=== PATIENT | female | born 1945 | race Asian ===

== ENCOUNTER 2016-08-28 20:52 | Emergency (ER) | payer BC, MEDICARE ==
--- NOTE | 2016-08-28 21:32 | ER Document Report ---
ED Medical Screen (RME) - General Stated Complaint: LEFT HIP PAIN Notes: 71 yo female c/o left hip pain x 2 days. no trauma. no fever. no redness or warmth. + aggrevated with prolonged standing. works in cafeteria. some relief with naprosyn TRAVEL OUTSIDE OF THE [place] IN LAST 30 DAYS: No - Related Data Allergies/Adverse Reactions: No Known Allergies Allergy (Verified 09/11/13 11:15) Past Medical History - Past Medical History Cardiac Medical History: Denies: Hx Coronary Artery Disease, Hx Heart Attack, Hx Hypertension Pulmonary Medical History: Denies: Hx Asthma, Hx Bronchitis, Hx COPD, Hx Pneumonia Neurological Medical History: Denies: Hx Cerebrovascular Accident, Hx Seizures GI Medical History: Musculoskeltal Medical History: Denies Hx Arthritis Infectious Medical History: Past Surgical History: Denies: Hx Pacemaker - Immunizations Hx Diphtheria, Pertussis, Tetanus Vaccination: Yes
[2016-08-28] MEDS ORDERED: VALACYCLOVIR HCL 500 MG TABLET PO ONE (22:57)
--- NOTE | 2016-08-28 23:00 | ER Document Report ---
HPI - HPI Patient complains to provider of: left hip pain Onset: Other - 2 days Onset/Duration: Better Quality of pain: Achy Pain Level: 2 Context: Patient complains of left lateral hip pain that started yesterday. Patient states that she took her naproxen and that her hip pain is now resolved. Patient complains of a numb tingling sensation to the lateral aspect of her left hip area. Patient denies any trauma. Patient denies any previous history of hip pain or low back pain. Patient denies any low back pain. Patient denies any urinary retention or incontinence. Patient denies any fever. Associated Symptoms: Other - Left lateral hip discomfort. denies: Fever Exacerbated by: Denies Relieved by: Denies Similar symptoms previously: No Recently seen / treated by doctor: No - ROS ROS below otherwise negative: Yes Systems Reviewed and Negative: Yes All other systems reviewed and negative - CONSTITUTIONAL Constitutional: DENIES: Fever, Chills - NEURO Neurology: DENIES: Headache, Weakness - CARDIOVASCULAR Cardiovascular: DENIES: Chest pain - RESPIRATORY Respiratory: DENIES: Trouble Breathing, Coughing - GASTROINTESTINAL Gastrointestinal: DENIES: Abdominal Pain, Nausea, Patient vomiting - URINARY Notes: No retention or incontinence - REPRODUCTIVE Reproductive: DENIES: : - MUSCULOSKELETAL Musculoskeletal: REPORTS: Extremity pain - Left lateral hip discomfort, Swelling - Left lateral hip. 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 Lives with: Alone Family History: None Patient has suicidal ideation: No Patient has homicidal ideation: No - Medical History Medical History: Negative - Past Medical History Cardiac Medical History: Denies: Hx Hypertension Pulmonary Medical History: Denies: Hx Asthma, Hx Bronchitis Endocrine Medical History: Denies: Hx Diabetes Mellitus Type 1, Hx Diabetes Mellitus Type 2 Renal/ Medical History: Denies: Hx End Stage Renal Disease, Hx Renal Insufficiency GI Medical History: Musculoskeltal Medical History: Denies Hx Arthritis Infectious Medical History: Past Surgical History: Reports: Hx Orthopedic Surgery - Immunizations Hx Diphtheria, Pertussis, Tetanus Vaccination: Yes Vertical Provider Document - CONSTITUTIONAL Agree With Documented VS: Yes - vital signs reviewed from triage sheet Exam Limitations: No Limitations General Appearance: WD/WN, No Apparent Distress - INFECTION CONTROL TRAVEL OUTSIDE OF THE [place] IN LAST 30 DAYS: No - HEENT HEENT: Atraumatic, Normocephalic - NECK Neck: Normal Inspection - RESPIRATORY Respiratory: Breath Sounds Normal, No Respiratory Distress, Chest Non-Tender - CARDIOVASCULAR Cardiovascular: Regular Rate, Regular Rhythm, No Murmur - GI/ABDOMEN Gastrointestinal: Abdomen Soft, Abdomen Non-Tender - BACK Back: Normal Inspection. negative: CVA Tenderness-Right, CVA Tenderness-Left Notes: No midline tenderness, step-off, or deformity, no SI joint tenderness. - MUSCULOSKELETAL/EXTREMETIES Musculoskeletal/Extremeties: MAEW, FROM, Non-Tender Notes: Left hip nontender on examination. Patient with full range of motion, moves without guarding. No objective swelling appreciated to left lateral hip area. Patient with few scattered discrete erythematous maculopapular lesions over area of the patient describes as feeling numb over left iliac crest - NEURO Level of Consciousness: Awake, Alert, Appropriate Motor/Sensory: No Motor Deficit Notes: No saddle anesthesia - DERM Integumentary: Warm, Dry, Rash - Few scattered discrete erythematous lesions to left lateral hip area Course - Re-evaluation Re-evalutation: 08/28/16 23:05 Discussed with patient concerned about possible early presentation of shingles given her pain symptoms, reported altered sensation and few scattered discrete red lesions. Patient states she was concerned about her symptoms as she lives by herself. Patient does state that she has a follow-up appointment tomorrow with her primary care provider. Patient encouraged to keep this appointment tomorrow with her doctor and encouraged to have her blood pressure rechecked as it was elevated tonight. Patient denies any previous history of hypertension or any renal problems. 08/28/16 23:12 Patient states that she does not have a personal history of hypertension. Patient states that because she is living alone right now because her is working out of town she is very anxious about having any thing go wrong with her body. Patient states that she does have a blood pressure cuff at home. Patient encouraged to measure her blood pressure at home and record the readings so that when she sees her doctor she can show him where her blood pressure has been running. Discharge - Discharge Clinical Impression: Left hip pain, Skin rash, Elevated blood pressure reading Condition: Stable Disposition: HOME, SELF-CARE Instructions: Shingles ([facility]), High Blood Pressure ([facility]) Additional Instructions: Return immediately for any new or worsening symptoms Followup with your primary care provider tomorrow for a recheck as planned Prescriptions: Valacyclovir HCl [Valacyclovir] 1,000 mg PO TID #21 tablet Forms: Return to Work, Elevated Blood Pressure Referrals: GERI RAMIREZ MD [EMERITUS] - Follow up tomorrow
[2016-08-29 01:00] VITALS: BP 130/74
== END 2016-08-29 01:00 | disposition home or self-care (01) ==
LOC: ER 20:52
DX: M25.552 Pain in left hip (principal); R21 Rash and other nonspecific skin eruption; R03.0 Elevated blood-pressure reading, without diagnosis of hypertension; R20.0 Anesthesia of skin; F41.9 Anxiety disorder, unspecified; Z60.2 Problems related to living alone; Z87.891 Personal history of nicotine dependence
CPT/HCPCS: 99283

== ENCOUNTER → 2016-09-17 | Outpatient (CLI) | payer BC ==
[2016-09-17 11:31] LABS: ABSOLUTE BASOPHILS # (AUTO) 0.1 10^3/uL (0.0-0.2); ABSOLUTE EOSINOPHILS # (AUTO) 0.4 10^3/uL (0.0-0.6); ABSOLUTE LYMPHOCYTES (AUTO) 1.8 10^3/uL (0.5-4.7); ABSOLUTE MONOCYTES (AUTO) 0.7 10^3/uL (0.1-1.4); ABSOLUTE NEUT (AUTO) 4.1 10^3/uL (1.7-8.2); BASOPHILS % (AUTO) 1.2 % (0-2); EOSINOPHILS % (AUTO) 5.5 % (0-6); HEMATOCRIT 40.4 % (36.0-47.0); HEMOGLOBIN 13.7 g/dL (12.0-15.5); HGB HCT DIFFERENCE 0.7; LYMPHOCYTES % (AUTO) 25.8 % (13-45); MEAN CORPUSCULAR HEMOGLOBIN 30.6 pg (27.0-33.4); MEAN CORPUSCULAR HGB CONC 33.8 g/dL (32.0-36.0); MEAN CORPUSCULAR VOLUME 91 fl (80-97); MONOCYTES % (AUTO) 9.4 % (3-13); RED BLOOD COUNT 4.46 10^6/uL (3.72-5.28); RED CELL DISTRIBUTION WIDTH 13.4 % (11.5-14.0); SEGMENTED NEUTROPHILS % (AUTO) 58.1 % (42-78)
[2016-09-17 11:57] LABS: ALANINE AMINOTRANSFERASE 22 U/L (9-52); ALKALINE PHOSPHATASE 72 U/L (38-126); ANION GAP 12 (5-19); ASPARTATE AMINO TRANSFERASE 21 U/L (14-36); BILIRUBIN,TOTAL 0.8 mg/dL (0.2-1.3); BLOOD UREA NITROGEN 21 mg/dL (7-20); CALCIUM 10.1 mg/dL (8.4-10.2); CARBON DIOXIDE 24 mmol/L (22-30); CHLORIDE 107 mmol/L (98-107); CREATININE RESULT 0.53 mg/dL (0.52-1.25); GLUCOSE 91 mg/dL (75-110); POTASSIUM 4.4 mmol/L (3.6-5.0); SODIUM 143.4 mmol/L (137-145)
[2016-09-18 08:47] LABS: CHOLESTEROL 198.53 mg/dL (0-200); Direct HDL 51 mg/dL (>40); TRIGLYCERIDES 138 mg/dL (<150)
[2016-09-18 08:57] LABS: DIRECT LDL 115 mg/dL (<100)
== END ==
LOC: OD 10:47
PROVIDERS: ATTEND Internal Medicine
DX: J44.9 Chronic obstructive pulmonary disease, unspecified (principal); R06.09 Other forms of dyspnea; E78.00 Pure hypercholesterolemia, unspecified; I10 Essential (primary) hypertension; Z79.899 Other long term (current) drug therapy
CPT/HCPCS: 36415; 71020; 80053; 80061; 85025

== ENCOUNTER 2017-07-03 07:53 | Day surgery (SDC) | payer BC ==
--- NOTE | 2017-06-26 18:05 | HISTORY AND PHYSICAL E ---
History and Physical NAME: NOE RAMIREZ : 1945 AGE: 72Y ADMITTED: 07/03/2017 ROOM: CHIEF COMPLAINT: Referred [facility]. The patient for colon screening. HISTORY: This 72-year-old female presented for colon screening. The patient did have a previous colonoscopy showing a benign polyp. She does have a history of diverticulosis. Biopsy of polyp negative. The patient is referred to us by Dr. Worthington for a colon screening. I did colonoscopy in 2009 that showed a rectal polyp. No adenoma. She did have sigmoid colon diverticulosis, occasional diverticulosis in the ascending colon. PAST SURGICAL HISTORY: Knee surgery. SOCIAL HISTORY: Does not smoke. Does not drink. . Four children. ALLERGIES: The patient has no known allergies. REVIEW OF SYSTEMS: CARDIAC: Negative. ENDOCRINE: Negative. GASTROINTESTINAL: Colon screening. NEUROPSYCH: Mild anxiety. CONCLUSION: 1. Diverticulosis. 2. Colon screening. Her last colonoscopy was done in 06/2010. 3. History of benign polyp. PLAN: Colonoscopy. DICTATING PHYSICIAN: MARIELA SHEPHERD M.D. [id number] PHY#: [id number] ID: [id number] JOB#: [id number] ACCT: [id number] cc:GERI RAMIREZ M.D., MAHMOUD M.D. >
[~2017-07-03 07:53] MED LIST: EPINEPHRINE INJ 1 MG/10 ML DISP.SYRIN ONE; FLUMAZENIL INJ 0.5 MG/5 ML VIAL ONE; GLUCAGON,HUMAN RECOMB 1 MG INJ ONE; GLYCOPYRROLATE INJ 0.4 MG/2 ML VIAL ONE; NALOXONE HCL INJ/PF 0.4 MG/1 ML SDV ONE; ONDANSETRON HCL INJ/PF 4 MG/2 ML SDV ONE
[2017-07-03] MEDS: MIDAZOLAM 2 MG/2 ML INJ ONE ×3 (08:09→08:19)
[2017-07-03] MEDS: FENTANYL CITRATE INJ/PF 100 MCG/2 ML AMPUL ONE ×2 (08:11→08:13)
[2017-07-03 09:29] VITALS: BP 121/68
[2017-07-03 09:50] LABS: ABSOLUTE LYMPHOCYTES (AUTO) 0.9 10^3/uL (0.5-4.7); ABSOLUTE MONOCYTES (AUTO) 0.5 10^3/uL (0.1-1.4); HEMOGLOBIN 12.9 g/dL (12.0-15.5); MEAN CORPUSCULAR HGB CONC 33.6 g/dL (32.0-36.0); MEAN CORPUSCULAR VOLUME 91 fl (80-97); RED BLOOD COUNT 4.23 10^6/uL (3.72-5.28)
[2017-07-03 09:55] LABS: ABSOLUTE BASOPHILS # (AUTO) 0.1 10^3/uL (0.0-0.2); ABSOLUTE EOSINOPHILS # (AUTO) 0.2 10^3/uL (0.0-0.6); ABSOLUTE NEUT (AUTO) 5.5 10^3/uL (1.7-8.2); BASOPHILS % (AUTO) 0.8 % (0-2); EOSINOPHILS % (AUTO) 2.2 % (0-6); HEMATOCRIT 38.4 % (36.0-47.0); HGB HCT DIFFERENCE 0.3; LYMPHOCYTES % (AUTO) 12.2 % (13-45); MEAN CORPUSCULAR HEMOGLOBIN 30.5 pg (27.0-33.4); MONOCYTES % (AUTO) 6.9 % (3-13); RED CELL DISTRIBUTION WIDTH 12.9 % (11.5-14.0); SEGMENTED NEUTROPHILS % (AUTO) 77.9 % (42-78); WHITE BLOOD COUNT 7.1 10^3/uL (4.0-10.5)
--- NOTE | 2017-07-03 10:22 | DISCHARGE SUMMARY E ---
Discharge Summary NAME: NOE RAMIREZ : 1945 AGE: 72Y ADMITTED: 07/03/2017 DISCHARGED: 07/03/2017 PROCEDURE: Colonoscopy. HISTORY AND PHYSICAL: The patient is 72, underwent colon exam showing no polyps, diffuse diverticulosis, mild external hemorrhoids. DISCHARGE PLAN: 1. Soft, low-residue diet for 3 days. 2. Baseline CBC. 3. Follow-up office visit in the next few days. DICTATING PHYSICIAN: MARIELA SHEPHERD M.D. [id number] PHY#: [id number] ID: [id number] JOB#: [id number] ACCT: [id number] cc:MARIELA SHEPHERD M.D. >
--- NOTE | 2017-07-03 10:24 | OPERATIVE REPORT E ---
Operative Report NAME: NOE RAMIREZ : 1945 AGE: 72Y DATE OF SURGERY: 07/03/2017 ROOM: PREOPERATIVE DIAGNOSIS: Colon screening. POSTOPERATIVE DIAGNOSIS: Diverticulosis, diffuse, left colon and right colon, more severe in sigmoid and descending colon. PROCEDURE: Colonoscopy. SURGEON: MARIELA SHEPHERD M.D. ANESTHESIA: Versed 3 mg and Fentanyl 100 mcg. TISSUE REMOVED OR ALTERED: None. FINDINGS: Mild external hemorrhoids. Sigmoid and descending colon diverticulosis. Ascending colon diverticulosis. No polyps. No malignancy. PROCEDURE: Rectal exam: External hemorrhoids. Sigmoid diverticulosis. Descending colon diverticulosis. Transverse colon normal. Ascending colon diverticulosis. Cecum normal. Scope withdrawn cecum, ascending, transverse, descending, sigmoid all the way to the rectum. CONCLUSIONS: No polyps. Diffuse diverticulosis. PLAN: Consider follow-up colonoscopy in 10 years. DICTATING PHYSICIAN: MARIELA SHEPHERD M.D. [id number] PHY#: [id number] ID: [id number] JOB#: [id number] ACCT: [id number] cc:GERI RAMIREZ M.D., MAHMOUD M.D. >
== END 2017-07-03 09:35 | disposition home or self-care (01) ==
LOC: END 07:53
PROVIDERS: ATTEND Specialist
PROC: 0DJD8ZZ Inspection of Lower Intestinal Tract, Via Natural or Artificial Opening Endoscopic (ICD-10-PCS; principal; 2017-07-03 08:00)
DX: Z12.11 Encounter for screening for malignant neoplasm of colon (principal); K64.4 Residual hemorrhoidal skin tags; K57.30 Diverticulosis of large intestine without perforation or abscess without bleeding
CPT/HCPCS: 45378; 36415; 85025; J2250; J3010; J1610; J2405; J0171; J2310; J3490

== ENCOUNTER → 2017-08-14 | Outpatient (CLI) | payer BC, MEDICARE ==
--- NOTE | 2017-08-14 11:48 | WOMENS IMAGING REPORT ---
EXAM DESCRIPTION: RIGHT DIAGNOSTIC MAMMO W/CAD; U/S BREAST UNILAT LIMITED; EMPLOYEE COMPLETED DATE/TIME: 08/14/2017 10:58 am; 08/14/2017 11:37 am REASON FOR STUDY: N63.12; RT BREAST [id number] N63.12 UNSPECIFIED LUMP IN THE RIGHT BREAST, UPPE R INNER SHANTI COMPARISON: 07/22/2017 and 07/24/2016. TECHNIQUE: Additional true lateral and spot compression MLO and CC images acquired. LIMITATIONS: None. FINDINGS: BREAST: right MASSES: The mass in question in the superior breast is rounded well-circumscribed with smooth margins . CALCIFICATIONS: No new or suspicious calcifications. ARCHITECTURAL DISTORTION: None. DEVELOPING DENSITY: None. ASYMMETRY: None noted. OTHER: No other significant findings. BREAST ULTRASOUND: TECHNIQUE: Static and dynamic grayscale images acquired of the right breast in the specific areas of clinical/mammographic concern. Selected color Doppler images recorded. ELASTOGRAPHY PERFORMED: No. LIMITATIONS: None. FINDINGS: MASS: There are multiple anechoic cysts in the superior breast. The largest cyst in the upper inner breast, corresponding to the mammographic finding, measures 6 mm. There is also a cyst in the upper- outer breast measuring 7 x 17 mm. All cysts are well-circumscribed with no internal echoes. No kendall d mass identified. Normal glandular tissue. ELASTOGRAPHY CHARACTERISTICS: Not applicable. OTHER: No other significant finding. IMPRESSION: Circumscribed masses which have sonographic appearance of breast cysts. No worrisome ma mmographic or sonographic findings. BREAST DENSITY: b. There are scattered areas of fibroglandular density. BIRAD: 2 Benign findings. RECOMMENDATION: RECOMMENDED FOLLOW UP: Birads 1 or 2: The patient should resume routine screening . SPECIFIC INTERVENTION/IMAGING/CONSULTATION RECOMMENDED:No additional intervention/ imaging/consultati on needed at this time. COMMUNICATION:The imaging findings were not discussed with the patient. Her referring provider has be en notified of the findings. COMMENT: The patient has been notified of the results by letter per MQSA requirements. Additional no tification policies are in place for contacting patient with suspicious or incomplete findings. Quality ID #225: The [employer] recommends an annual screening mammogram for women aged 40 years or over. This facility utilizes a reminder system to ensure that all patients receive reminder letters, and/or direct phone calls for appointments. This includes reminders for routine scr eening mammograms, diagnostic mammograms, or other Breast Imaging Interventions when appropriate. Th is patient will be placed in the appropriate reminder system. The [employer] (ACR) has developed recommendations for screening MRI of the breast s in certain patient populations, to be used in conjunction with mammography. Breast MRI surveillanc e may be appropriate for women with more than 20% lifetime risk of developing breast cancer as deter mined by genetic testing, significant family history of the disease, or history of mantle radiation f or Hodgkins Disease. ACR Practice Guidelines 2008. TECHNICAL DOCUMENTATION: FINDING NUMBER: (1) ASSESSMENT: (1) JOB ID: [id number] [employer]- All Rights Reserved
== END ==
LOC: WI 10:41
PROVIDERS: ATTEND Internal Medicine
DX: N63.12 Unspecified lump in the right breast, upper inner quadrant (principal)
CPT/HCPCS: 76642; G0206

== ENCOUNTER → 2017-09-24 | Outpatient (CLI) | payer BC, MEDICARE ==
[2017-09-24 07:52] LABS: ABSOLUTE BASOPHILS # (AUTO) 0.1 10^3/uL (0.0-0.2); ABSOLUTE EOSINOPHILS # (AUTO) 0.4 10^3/uL (0.0-0.6); ABSOLUTE MONOCYTES (AUTO) 0.5 10^3/uL (0.1-1.4); ABSOLUTE NEUT (AUTO) 2.9 10^3/uL (1.7-8.2); BASOPHILS % (AUTO) 1.5 % (0-2); EOSINOPHILS % (AUTO) 6.1 % (0-6); HEMATOCRIT 40.6 % (36.0-47.0); HEMOGLOBIN 13.8 g/dL (12.0-15.5); LYMPHOCYTES % (AUTO) 33.8 % (13-45); MEAN CORPUSCULAR HEMOGLOBIN 30.3 pg (27.0-33.4); MEAN CORPUSCULAR HGB CONC 33.9 g/dL (32.0-36.0); MEAN CORPUSCULAR VOLUME 89 fl (80-97); MONOCYTES % (AUTO) 8.6 % (3-13); PLATELET COUNT 282 10^3/uL (150-450); RED BLOOD COUNT 4.55 10^6/uL (3.72-5.28); RED CELL DISTRIBUTION WIDTH 12.8 % (11.5-14.0); TOTAL CELLS COUNTED % (AUTO) 100 %; WHITE BLOOD COUNT 5.8 10^3/uL (4.0-10.5)
[2017-09-24 08:17] LABS: ALANINE AMINOTRANSFERASE 20 U/L (9-52); ALBUMIN 4.3 g/dL (3.5-5.0); ALKALINE PHOSPHATASE 72 U/L (38-126); ANION GAP 10 (5-19); ASPARTATE AMINO TRANSFERASE 23 U/L (14-36); BILIRUBIN,DIRECT 0.3 mg/dL (0.0-0.4); BILIRUBIN,TOTAL 0.6 mg/dL (0.2-1.3); BLOOD UREA NITROGEN 15 mg/dL (7-20); CALCIUM 9.9 mg/dL (8.4-10.2); CARBON DIOXIDE 23 mmol/L (22-30); CHLORIDE 109 mmol/L (98-107); CHOLESTEROL 179.03 mg/dL (0-200); GLUCOSE 110 mg/dL (75-110); POTASSIUM 4.5 mmol/L (3.6-5.0); SODIUM 142.3 mmol/L (137-145); TRIGLYCERIDES 110 mg/dL (<150)
[2017-09-24 08:28] LABS: DIRECT LDL 118 mg/dL (<100)
== END ==
LOC: LAB 07:36
PROVIDERS: ATTEND Internal Medicine
DX: Z00.00 Encounter for general adult medical examination without abnormal findings (principal); I10 Essential (primary) hypertension; E78.00 Pure hypercholesterolemia, unspecified; Z79.899 Other long term (current) drug therapy
CPT/HCPCS: 36415; 80053; 80061; 85025

== ENCOUNTER → 2018-09-25 | Outpatient (CLI) | payer BC ==
[2018-09-25 07:15] LABS: ABSOLUTE BASOPHILS # (AUTO) 0.1 10^3/uL (0.0-0.2); ABSOLUTE EOSINOPHILS # (AUTO) 0.3 10^3/uL (0.0-0.6); ABSOLUTE LYMPHOCYTES (AUTO) 1.7 10^3/uL (0.5-4.7); ABSOLUTE MONOCYTES (AUTO) 0.5 10^3/uL (0.1-1.4); ABSOLUTE NEUT (AUTO) 2.8 10^3/uL (1.7-8.2); BASOPHILS % (AUTO) 1.4 % (0-2); EOSINOPHILS % (AUTO) 5.5 % (0-6); HEMATOCRIT 39.9 % (36.0-47.0); HEMOGLOBIN 13.7 g/dL (12.0-15.5); LYMPHOCYTES % (AUTO) 31.5 % (13-45); MEAN CORPUSCULAR HEMOGLOBIN 31.3 pg (27.0-33.4); MEAN CORPUSCULAR HGB CONC 34.3 g/dL (32.0-36.0); MEAN CORPUSCULAR VOLUME 91 fl (80-97); MONOCYTES % (AUTO) 9.4 % (3-13); PLATELET COUNT 293 10^3/uL (150-450); RED BLOOD COUNT 4.38 10^6/uL (3.72-5.28); RED CELL DISTRIBUTION WIDTH 12.4 % (11.5-14.0); SEGMENTED NEUTROPHILS % (AUTO) 52.2 % (42-78); TOTAL CELLS COUNTED % (AUTO) 100 %; WHITE BLOOD COUNT 5.3 10^3/uL (4.0-10.5)
[2018-09-25 07:33] LABS: ALANINE AMINOTRANSFERASE 10 U/L (9-52); ALBUMIN 4.6 g/dL (3.5-5.0); ALKALINE PHOSPHATASE 70 U/L (38-126); ANION GAP 11 (5-19); ASPARTATE AMINO TRANSFERASE 21 U/L (14-36); BILIRUBIN,DIRECT 0.2 mg/dL (0.0-0.4); BILIRUBIN,TOTAL 0.7 mg/dL (0.2-1.3); BLOOD UREA NITROGEN 18 mg/dL (7-20); CALCIUM 9.3 mg/dL (8.4-10.2); CARBON DIOXIDE 25 mmol/L (22-30); CHLORIDE 107 mmol/L (98-107); CHOLESTEROL 169.19 mg/dL (0-200); GLUCOSE 110 mg/dL (75-110); POTASSIUM 4.4 mmol/L (3.6-5.0); SODIUM 142.6 mmol/L (137-145); TOTAL PROTEIN 7.7 g/dL (6.3-8.2); TRIGLYCERIDES 78 mg/dL (<150)
[2018-09-25 07:44] LABS: DIRECT LDL 100 mg/dL (<100)
== END ==
LOC: LAB 06:56
PROVIDERS: ATTEND Internal Medicine
DX: I10 Essential (primary) hypertension (principal); M15.9 Polyosteoarthritis, unspecified; Z79.899 Other long term (current) drug therapy
CPT/HCPCS: 36415; 80053; 80061; 85025

== ENCOUNTER 2018-11-11 10:27 | Emergency (ER) | payer BC ==
[2018-11-11] MEDS ORDERED: ASPIRIN 81 MG TABLET, CHEWABLE PO ONE (10:44)
[2018-11-11 11:05] LABS: ABSOLUTE BASOPHILS # (AUTO) 0.1 10^3/uL (0.0-0.2); ABSOLUTE EOSINOPHILS # (AUTO) 0.2 10^3/uL (0.0-0.6); ABSOLUTE MONOCYTES (AUTO) 0.5 10^3/uL (0.1-1.4); ABSOLUTE NEUT (AUTO) 5.4 10^3/uL (1.7-8.2); BASOPHILS % (AUTO) 0.9 % (0-2); EOSINOPHILS % (AUTO) 2.4 % (0-6); HEMATOCRIT 40.6 % (36.0-47.0); HEMOGLOBIN 13.8 g/dL (12.0-15.5); LYMPHOCYTES % (AUTO) 24.7 % (13-45); MEAN CORPUSCULAR HEMOGLOBIN 30.7 pg (27.0-33.4); MEAN CORPUSCULAR VOLUME 90 fl (80-97); MONOCYTES % (AUTO) 6.2 % (3-13); PLATELET COUNT 317 10^3/uL (150-450); RED BLOOD COUNT 4.49 10^6/uL (3.72-5.28); RED CELL DISTRIBUTION WIDTH 12.6 % (11.5-14.0); SEGMENTED NEUTROPHILS % (AUTO) 65.8 % (42-78); TOTAL CELLS COUNTED % (AUTO) 100 %; WHITE BLOOD COUNT 8.2 10^3/uL (4.0-10.5)
[2018-11-11 11:16] LABS: ALANINE AMINOTRANSFERASE 16 U/L (9-52); ALBUMIN 4.6 g/dL (3.5-5.0); ALKALINE PHOSPHATASE 79 U/L (38-126); ANION GAP 13 (5-19); ASPARTATE AMINO TRANSFERASE 24 U/L (14-36); BILIRUBIN,DIRECT 0.3 mg/dL (0.0-0.4); BILIRUBIN,TOTAL 0.7 mg/dL (0.2-1.3); BLOOD UREA NITROGEN 19 mg/dL (7-20); CALCIUM 10.3 mg/dL (8.4-10.2); CARBON DIOXIDE 24 mmol/L (22-30); CHLORIDE 102 mmol/L (98-107); CREATINE KINASE 83 U/L (30-135); GLUCOSE 133 mg/dL (75-110); LIPASE 112.5 U/L (23-300); SODIUM 139.3 mmol/L (137-145); TOTAL PROTEIN 8.2 g/dL (6.3-8.2)
--- NOTE | 2018-11-11 11:22 | RADIOLOGY REPORT (SQ) ---
EXAM DESCRIPTION: CHEST SINGLE VIEW COMPLETED DATE/TIME: 11/11/2018 11:15 am REASON FOR STUDY: cp COMPARISON: 12/03/2010. EXAM PARAMETERS: NUMBER OF VIEWS: One view. TECHNIQUE: Single frontal radiographic view of the chest acquired. RADIATION DOSE: NA LIMITATIONS: None. FINDINGS: LUNGS AND PLEURA: No opacities, masses or pneumothorax. No pleural effusion. MEDIASTINUM AND HILAR STRUCTURES: No masses. Contour normal. HEART AND VASCULAR STRUCTURES: Heart normal in size. Normal vasculature. BONES: No acute findings. HARDWARE: None in the chest. OTHER: No other significant finding. IMPRESSION: NO ACUTE RADIOGRAPHIC FINDING IN THE CHEST. TECHNICAL DOCUMENTATION: JOB ID: [id number] [employer]- All Rights Reserved Reading location - IP/workstation name: [email or web address]
[2018-11-11 11:28] LABS: CREATINE KINASE MB 1.27 ng/mL (<4.55); TROPONIN I < 0.012 ng/mL
[2018-11-11] MEDS ORDERED: LIDOCAINE 5% (700 MG) TRANSDERMAL ADH..PATCH TP ONE (12:02)
--- NOTE | 2018-11-11 12:15 | ER Document Report ---
ED General - General Chief Complaint: Chest Pain > 30 Stated Complaint: CHEST PAIN Time Seen by Provider: 11/11/18 10:45 TRAVEL OUTSIDE OF THE [place] IN LAST 30 DAYS: No - HPI Patient complains to provider of: Left chest wall pain Notes: Is coming in for evaluation of left chest wall pain. Patient is increased activity of last few days which is been ongoing for 2 days. Patient also states she may fell and hit the left side of her chest while performing some work at home. Patient denies any fevers chills nausea vomiting diarrhea loss of consciousness. A brief review of the patient's past medical records available in [facility] was performed - Related Data Allergies/Adverse Reactions: No Known Allergies Allergy (Verified 11/11/18 10:33) Past Medical History - Social History Smoking Status: Unknown if Ever Smoked Family History: None - Past Medical History Cardiac Medical History: Denies: Hx Coronary Artery Disease, Hx Heart Attack, Hx Hypertension Pulmonary Medical History: Denies: Hx Asthma, Hx Bronchitis, Hx COPD, Hx Pneumonia Neurological Medical History: Denies: Hx Cerebrovascular Accident, Hx Seizures Endocrine Medical History: Denies: Hx Diabetes Mellitus Type 1, Hx Diabetes Mellitus Type 2 Renal/ Medical History: Denies: Hx End Stage Renal Disease, Hx Peritoneal Dialysis, Hx Renal Insufficiency GI Medical History: Musculoskeletal Medical History: Denies Hx Arthritis Infectious Medical History: Past Surgical History: Reports: Hx Orthopedic Surgery. Denies: Hx Hysterectomy, Hx Pacemaker - Immunizations Hx Diphtheria, Pertussis, Tetanus Vaccination: Yes Review of Systems - Review of Systems Constitutional: No symptoms reported EENT: No symptoms reported Cardiovascular: Chest pain Respiratory: No symptoms reported Gastrointestinal: No symptoms reported Genitourinary: No symptoms reported Female Genitourinary: No symptoms reported Musculoskeletal: No symptoms reported Skin: No symptoms reported Hematologic/Lymphatic: No symptoms reported Neurological/Psychological: No symptoms reported Physical Exam - Vital signs Vitals: Temp 98.5 F 11/11/18 10:40 Interpretation: Normal - General General appearance: Appears well, Alert - HEENT Head: Normocephalic, Atraumatic Eyes: Normal Pupils: PERRL - Respiratory Respiratory status: No respiratory distress Chest status: Tender - Tenderness to the left as well Breath sounds: Normal Chest palpation: Normal - Cardiovascular Rhythm: Regular Heart sounds: Normal auscultation Murmur: No - Abdominal Inspection: Normal Distension: No distension Bowel sounds: Normal Tenderness: Nontender Organomegaly: No organomegaly - Back Back: Normal, Nontender - Extremities General upper extremity: Normal inspection, Nontender, Normal color, Normal ROM, Normal temperature General lower extremity: Normal inspection, Nontender, Normal color, Normal ROM, Normal temperature, Normal weight bearing. No: Bria's sign - Neurological Neuro grossly intact: Yes Cognition: Normal Orientation: AAOx4 Worthington Coma Scale Eye Opening: Spontaneous Worthington Coma Scale Verbal: Oriented Wilmer Coma Scale Motor: Obeys Commands Wilmer Coma Scale Total: 15 Speech: Normal Motor strength normal: LUE, RUE, LLE, RLE Sensory: Normal - Psychological Associated symptoms: Normal affect, Normal mood - Skin Skin Temperature: Warm Skin Moisture: Dry Skin Color: Normal Course - Re-evaluation Re-evalutation: 12/04/18 11:46 The patient has atypical chest pain as the patient's chest pain is not suggestive of pulmonary embolus, cardiac ischemia, aortic dissection, or other serious etiology. Given the extremely low risk of these diagnoses further testing and evaluation for these possibilities does not appear to be indicated at this time. The patient has been instructed to return if the symptoms worsen or change in any way. - Vital Signs Vital signs: Temp Pulse Resp BP Pulse Ox 98.7 F 21 H 171/76 H 95 11/11/18 13:00 11/11/18 12:01 11/11/18 12:57 11/11/18 13:00 - Laboratory Result Diagrams: 11/11/18 10:47 11/11/18 10:47 Laboratory results interpreted by me: 11/11/18 10:47 Glucose 133 H Calcium 10.3 H Discharge - Discharge Clinical Impression: Chest wall pain Condition: Good Disposition: HOME, SELF-CARE Instructions: Anti-Inflammatory Medication ([facility]), Chest Wall Pain ([facility]), Oral Narcotic Medication ([facility]), Rib Contusion ([facility]) Additional Instructions: Your physical examination is not show any critical pathology of highly recommend following up with your primary care physician return to ER symptoms worsen. sHe may take Tylenol and Motrin together as prescribed you may take the Ultram as needed for severe pain Prescriptions: Ibuprofen [Motrin 600 mg Tablet] 600 mg PO Q8HP PRN #21 tablet PRN Reason: Tramadol HCl [Ultram 50 mg Tablet] 50 mg PO ASDIR PRN #14 tablet PRN Reason: Forms: Return to Work
[2018-11-11 13:12] VITALS: BP 171/76
--- NOTE | 2018-11-11 21:20 | EKG REPORT ---
SEVERITY:- NORMAL ECG - SINUS RHYTHM : Confirmed by: Saida Bowie MD 11-Nov-2018 21:20:03
--- NOTE | 2018-11-11 21:20 | EKG REPORT ---
SEVERITY:- NORMAL ECG - SINUS RHYTHM : Confirmed by: Saida Bowie MD 11-Nov-2018 21:20:00
== END 2018-11-11 13:13 | disposition home or self-care (01) ==
LOC: ER 10:27
DX: R07.89 Other chest pain (principal)
CPT/HCPCS: 36415; 71045; 80053; 82550; 82553; 83690; 83735; 84484; 85025; 93005; 93010; 99285

== ENCOUNTER → 2019-01-07 | Outpatient (CLI) | payer BC, MEDICARE ==
--- NOTE | 2019-01-08 09:18 | RADIOLOGY REPORT (SQ) ---
EXAM DESCRIPTION: MRI HEAD COMBO COMPLETED DATE/TIME: 01/07/2019 7:36 pm REASON FOR STUDY: H90.42 SNSRNRL HEAR LOSS, UNI, LEFT EAR, W UNRESTR HEAR CNTRA SIDE H90.42 SNSRNRL HEAR LOSS, UNI, LEFT EAR, W UNRESTR HEAR CNTR COMPARISON: None. TECHNIQUE: Multiplanar imaging includes noncontrasted T1, T2, FLAIR, diffusion with ADC map and post gadolinium contrast T1 sequences. Additional thin section axial T2, axial and coronal pre and postcontrast T1 weighted images through t he internal auditory canals and inner ear structures were obtained. Images stored on PACS. CONTRAST TYPE AND DOSE: 10 mL Dotarem. RENAL FUNCTION: Not indicated. ACR Type II contrast agent associated with few, if any, unconfounded cases of NSF LIMITATIONS: None. FINDINGS: ANATOMY: No anomalies. Normal vascular flow voids. Pituitary fossa normal. CSF SPACES: Normal in size and contour. No hemorrhage. CEREBRUM: Sulci and gyri normal in size and contour. Normal white matter signal on FLAIR imaging. No evidence of hemorrhage, mass, or extraaxial fluid collection. No abnormal enhancement post contrast. POSTERIOR FOSSA: No signal alteration. No hemorrhage. No edema, masses, or mass effect. Internal gwen tory canals, cerebellopontine angles, mastoids normal. No enhancing lesions. No abnormal brain parenc hymal or dural enhancement post contrast. DIFFUSION IMAGING: Negative for acute or subacute infarction. ORBITS: No masses. Globes normal. PARANASAL SINUSES: No fluid levels. Mucosa normal. OTHER: Gradient echo T2 weighted images demonstrate basal ganglia iron deposition. IMPRESSION: ESSENTIALLY NORMAL FOR AGE MRI OF THE BRAIN WITHOUT AND WITH INTRAVENOUS GADOLINIUM CONT RAST. EVIDENCE OF ACUTE STROKE: NO. TECHNICAL DOCUMENTATION: JOB ID: [id number] [employer]- All Rights Reserved Reading location - IP/workstation name: [email or web address]
== END ==
LOC: RAD 16:32
PROVIDERS: ATTEND Otolaryngology
DX: H90.42 Sensorineural hearing loss, unilateral, left ear, with unrestricted hearing on the contralateral side (principal)
CPT/HCPCS: 82565; 70553; A9576

== ENCOUNTER 2019-03-24 04:57 | Emergency (ER) | payer BC ==
[2019-03-24] MEDS ORDERED: ASPIRIN 81 MG TABLET, CHEWABLE PO ONE (05:13)
--- NOTE | 2019-03-24 05:15 | ER Document Report ---
ED Medical Screen (RME) - General Stated Complaint: DIFFICULTY BREATHING Time Seen by Provider: 03/24/19 05:12 Primary Care Provider: CAITLYN HA MD [Primary Care Provider] - Follow up as needed Notes: 73-year-old female chief complaint of intermittent chest discomfort in the center of her chest and dyspnea on exertion. Symptoms started early in the day but have worsened this evening. Patient denies dizziness, nausea/vomiting, feve r/chills. She denies any daily medications, only past medical history reported is arthritis, denies smoking, alcohol, recreational drugs, or family history of cardiac disease. TRAVEL OUTSIDE OF THE [place] IN LAST 30 DAYS: No - Related Data Allergies/Adverse Reactions: No Known Allergies Allergy (Verified 11/11/18 10:33) Past Medical History - Past Medical History Cardiac Medical History: Denies: Hx Coronary Artery Disease, Hx Heart Attack, Hx Hypertension Pulmonary Medical History: Denies: Hx Asthma, Hx Bronchitis, Hx COPD, Hx Pneumonia Neurological Medical History: Denies: Hx Cerebrovascular Accident, Hx Seizures Endocrine Medical History: Denies: Hx Diabetes Mellitus Type 1, Hx Diabetes Mellitus Type 2 Renal/ Medical History: Denies: Hx End Stage Renal Disease, Hx Peritoneal Dialysis, Hx Renal Insufficiency GI Medical History: Musculoskeltal Medical History: Denies Hx Arthritis Infectious Medical History: Past Surgical History: Reports: Hx Orthopedic Surgery. Denies: Hx Hysterectomy, Hx Pacemaker - Immunizations Hx Diphtheria, Pertussis, Tetanus Vaccination: Yes Physical Exam - Respiratory Respiratory status: No respiratory distress Breath sounds: Normal. No: Decreased air movement, Stridor - Cardiovascular Rhythm: Regular. No: Tachycardia Heart sounds: Normal auscultation, S1 appreciated, S2 appreciated Course - Re-evaluation Re-evalutation: I have greeted and performed a rapid initial assessment of this patient. A comprehensive ED assessment and evaluation of the patient, analysis of test results and completion of the medical decision making process will be conducted by additional ED providers. Doctor's Discharge - Discharge Referrals: CAITLYN HA MD [Primary Care Provider] - Follow up as needed
[2019-03-24 05:43] LABS: ABSOLUTE BASOPHILS # (AUTO) 0.1 10^3/uL (0.0-0.2); ABSOLUTE EOSINOPHILS # (AUTO) 0.4 10^3/uL (0.0-0.6); ABSOLUTE MONOCYTES (AUTO) 0.6 10^3/uL (0.1-1.4); ABSOLUTE NEUT (AUTO) 2.9 10^3/uL (1.7-8.2); BASOPHILS % (AUTO) 1.4 % (0-2); HEMATOCRIT 40.7 % (36.0-47.0); HEMOGLOBIN 13.8 g/dL (12.0-15.5); LYMPHOCYTES % (AUTO) 33.4 % (13-45); MEAN CORPUSCULAR HEMOGLOBIN 30.8 pg (27.0-33.4); MEAN CORPUSCULAR HGB CONC 33.9 g/dL (32.0-36.0); MEAN CORPUSCULAR VOLUME 91 fl (80-97); MONOCYTES % (AUTO) 9.4 % (3-13); PLATELET COUNT 268 10^3/uL (150-450); RED BLOOD COUNT 4.47 10^6/uL (3.72-5.28); RED CELL DISTRIBUTION WIDTH 12.7 % (11.5-14.0); SEGMENTED NEUTROPHILS % (AUTO) 48.8 % (42-78); TOTAL CELLS COUNTED % (AUTO) 100 %; WHITE BLOOD COUNT 5.9 10^3/uL (4.0-10.5)
[2019-03-24 05:59] LABS: ALBUMIN 4.5 g/dL (3.5-5.0); ALKALINE PHOSPHATASE 74 U/L (38-126); ANION GAP 10 (5-19); ASPARTATE AMINO TRANSFERASE 27 U/L (14-36); BILIRUBIN,DIRECT 0.2 mg/dL (0.0-0.4); BILIRUBIN,TOTAL 0.9 mg/dL (0.2-1.3); BLOOD UREA NITROGEN 20 mg/dL (7-20); CALCIUM 9.4 mg/dL (8.4-10.2); CARBON DIOXIDE 24 mmol/L (22-30); CHLORIDE 106 mmol/L (98-107); GLUCOSE 120 mg/dL (75-110); POTASSIUM 4.1 mmol/L (3.6-5.0); TOTAL PROTEIN 7.9 g/dL (6.3-8.2)
[2019-03-24] MEDS ORDERED: NITROGLYCERIN 0.4 MG/TAB 25 TAB/BOTTLE SL PRN (06:31)
--- NOTE | 2019-03-24 07:02 | ER Document Report ---
ED General - General Chief Complaint: Breathing Difficulty Stated Complaint: DIFFICULTY BREATHING Time Seen by Provider: 03/24/19 05:12 Primary Care Provider: CAITLYN HA MD [NO LOCAL MD] - Follow up as needed TRAVEL OUTSIDE OF THE [place] IN LAST 30 DAYS: No - HPI Notes: Patient is a 73-year-old female who presents to the emergency department for evaluation. She states she has had chest pressure. She points to the substernal region. It does not radiate. Yesterday it seemed to be worsened by exertion, with associated shortness of breath. She states she went to bed, this morning she woke in the pain was still there. She called her , who happens to be out of town. He recommended she go to the emergency department. - Related Data Allergies/Adverse Reactions: No Known Allergies Allergy (Verified 11/11/18 10:33) Past Medical History - General Information source: Patient - Social History Smoking Status: Never Smoker Family History: None Patient has suicidal ideation: No Patient has homicidal ideation: No - Past Medical History Cardiac Medical History: Denies: Hx Coronary Artery Disease, Hx Heart Attack, Hx Hypertension Pulmonary Medical History: Denies: Hx Asthma, Hx Bronchitis, Hx COPD, Hx Pneumonia Neurological Medical History: Denies: Hx Cerebrovascular Accident, Hx Seizures Endocrine Medical History: Denies: Hx Diabetes Mellitus Type 1, Hx Diabetes Mellitus Type 2 Renal/ Medical History: Denies: Hx End Stage Renal Disease, Hx Peritoneal Dialysis, Hx Renal Insufficiency GI Medical History: Musculoskeletal Medical History: Reports Hx Arthritis Infectious Medical History: Past Surgical History: Reports: Hx Orthopedic Surgery. Denies: Hx Hysterectomy, Hx Pacemaker - Immunizations Hx Diphtheria, Pertussis, Tetanus Vaccination: Yes Review of Systems - Review of Systems Constitutional: No symptoms reported EENT: No symptoms reported Cardiovascular: See HPI Respiratory: See HPI Gastrointestinal: No symptoms reported Genitourinary: No symptoms reported Musculoskeletal: No symptoms reported Neurological/Psychological: No symptoms reported Physical Exam - Vital signs Vitals: Resp 18 03/24/19 05:15 - Notes Notes: This is a pleasant 73-year-old female, appears her stated age in no acute distress. Vital signs reviewed, please refer to chart. Head is normocephalic, atraumatic. Pupils equal round, reactive to light. Neck is supple without meningismus. Heart is regular rate and rhythm. Lungs are clear to auscultation bilaterally. Abdomen is soft, nontender, normoactive bowel sounds throughout. Extremities without cyanosis, clubbing. Posterior calves are nontender. Peripheral pulses are equal. Skin is warm and dry. Patient is awake, alert, neurological exam is nonfocal. Course - Re-evaluation Re-evalutation: 03/24/19 07:06 Patient presents emergency department for evaluation of chest pain. She was initially evaluated, orders placed by physician mail handler assistant. The patient refused to have the aspirin, agreed only to take 2. She is placed on a cardiac care unit nurse and blood work was obtained. EKG shows likely LVH with some secondary abnormalities. She does have a new T wave inversion in aVL. Patient reluctantly agreed to take sublingual nitroglycerin. Following the administration of this medication, patient stated that her chest pressure worsened. I do suspect an aspect of anxiety. Unfortunately this patient is refusing most medications at this time. Currently she is significantly hypertensive, with a blood pressure 194/76. Her heart rate is in the 70s and otherwise she is stable. We will continue to monitor. Her initial troponin was indeterminately elevated. [facility] 03/24/19 07:42 I was notified by nursing that the patient had an increase in her chest pressure. Repeat EKG was ordered. Second EKG showed worsening inversion and T waves in the lateral leads, as well as some evolving ST elevation and T wave inversion anteriorly, concerning for an anterior wall STEMI. I notified patient of these findings. She did agree to this second 2 baby aspirin. She further agreed to IV placement with starting nitroglycerin drip. I spoke to Dr. Vázquez, ED physician at [facility]. He asked that the patient be administered TNKase based on findings, and accepted the patient in transfer. Patient was questioned in regards to any contraindications, has none. Nitroglycerin was started at 10 mics, TNKase ordered, patient will be transferred to the [facility] at [facility] in [place]. - Vital Signs Vital signs: Temp Pulse Resp BP Pulse Ox 97.9 F 74 19 194/76 H 96 03/24/19 05:28 03/24/19 05:28 03/24/19 07:02 03/24/19 07:02 03/24/19 07:02 - Laboratory Result Diagrams: 03/24/19 05:25 03/24/19 05:25 Laboratory results interpreted by me: 03/24/19 03/24/19 05:25 05:25 Eosinophils % 7.0 H Glucose 120 H - Diagnostic Test Radiology reviewed: Reports reviewed Radiology results interpreted by me: 03/24/19 07:44 Chest X-Ray 03/24/19 05:13 IMPRESSION: No evidence of acute intrathoracic disease. - EKG Interpretation by Me Additional EKG results interpreted by me: 03/24/19 07:08 Sinus arrhythmia with rate of 69 bpm. Normal axis and intervals. Lateral ST changes, including new T wave inversion in aVL, concerning for possible ischemia versus strain pattern with LVH. This is changed when compared to prior study. 03/24/19 07:44 Repeat EKG reveals a sinus rhythm with a rate of [address] elevation and T wave changes anteriorly concerning for ST elevation TN. Discharge - Discharge Clinical Impression: ST elevation (STEMI) myocardial infarction Qualifiers: Involved coronary artery: unspecified coronary artery Qualified Code(s): I21.3 - ST elevation (STEMI) myocardial infarction of unspecified site Condition: Stable Disposition: [facility] Admitting Provider: Dr. Arshad Referrals: CAITLYN HA MD [NO LOCAL MD] - Follow up as needed
[2019-03-24] MEDS ORDERED: NITROGLYCERIN/D5W 50 MG/250 ML RTUINJ IV PRN (07:20)
--- NOTE | 2019-03-24 07:21 | RADIOLOGY REPORT (SQ) ---
EXAM DESCRIPTION: X-ray single view chest. CLINICAL HISTORY: 73 years Female, chest pain COMPARISON: 11/11/2018 TECHNIQUE: Single portable x-ray view of the chest performed on 03/24/2019 at 5:27 AM FINDINGS: The lungs are well expanded and are clear. There is no evidence of a pneumothorax. The cardiac silhouette is normal in size and configuration. The mediastinal contours are normal. No acute osseous abnormality is identified. No focal soft tissue abnormalities are seen. Lines and tubes: None. IMPRESSION: No evidence of acute intrathoracic disease.
--- NOTE | 2019-03-24 07:29 | EKG REPORT ---
SEVERITY:- ABNORMAL ECG - SINUS ARRHYTHMIA, RATE 56-76 CONSIDER LEFT VENTRICULAR HYPERTROPHY : Confirmed by: Gianni James MD 24-Mar-2019 07:29:07
--- NOTE | 2019-03-24 07:29 | EKG REPORT ---
SEVERITY:- ABNORMAL ECG - SINUS RHYTHM ABNORMAL T, CONSIDER ISCHEMIA, ANT-LAT LEADS, NEW SINCE 11/11/18. PROLONGED QT : Confirmed by: Gianni James MD 24-Mar-2019 07:28:52
[2019-03-24] MEDS ORDERED: TENECTEPLASE INJ 50 MG KIT IV ONE (07:30)
[2019-03-24 07:46] LABS: INTERNATIONAL RATION (INR) 0.98
[2019-03-24 07:47] LABS: PARTIAL THROMBOPLASTIN TIME 48.7 SEC (23.5-35.8)
[2019-03-24 08:18] VITALS: BP 201/89
== END 2019-03-24 08:19 | disposition short-term general hospital (02) ==
LOC: ER 04:57
DX: I21.3 ST elevation (STEMI) myocardial infarction of unspecified site (principal); R06.00 Dyspnea, unspecified
CPT/HCPCS: 93005; 36415; 85025; 85610; 85730; 80053; 84484; 71045; 93010; J3101; J3490; 96365; 96375; 99285

== ENCOUNTER → 2019-05-26 | Outpatient (CLI) | payer BC, MEDICARE ==
[2019-05-26 11:42] LABS: ABSOLUTE BASOPHILS # (AUTO) 0.1 10^3/uL (0.0-0.2); ABSOLUTE EOSINOPHILS # (AUTO) 0.4 10^3/uL (0.0-0.6); ABSOLUTE LYMPHOCYTES (AUTO) 1.8 10^3/uL (0.5-4.7); ABSOLUTE MONOCYTES (AUTO) 0.9 10^3/uL (0.1-1.4); ABSOLUTE NEUT (AUTO) 3.3 10^3/uL (1.7-8.2); BASOPHILS % (AUTO) 1.3 % (0-2); EOSINOPHILS % (AUTO) 6.3 % (0-6); HEMATOCRIT 37.2 % (36.0-47.0); HEMOGLOBIN 12.4 g/dL (12.0-15.5); LYMPHOCYTES % (AUTO) 27.5 % (13-45); MEAN CORPUSCULAR HEMOGLOBIN 29.3 pg (27.0-33.4); MEAN CORPUSCULAR HGB CONC 33.5 g/dL (32.0-36.0); MEAN CORPUSCULAR VOLUME 88 fl (80-97); MONOCYTES % (AUTO) 13.9 % (3-13); PLATELET COUNT 251 10^3/uL (150-450); RED BLOOD COUNT 4.24 10^6/uL (3.72-5.28); TOTAL CELLS COUNTED % (AUTO) 100 %; WHITE BLOOD COUNT 6.5 10^3/uL (4.0-10.5)
[2019-05-26 12:05] LABS: ANION GAP 12 (5-19); BLOOD UREA NITROGEN 14 mg/dL (7-20); CALCIUM 9.8 mg/dL (8.4-10.2); CARBON DIOXIDE 25 mmol/L (22-30); CHLORIDE 102 mmol/L (98-107); GLUCOSE 96 mg/dL (75-110); POTASSIUM 3.9 mmol/L (3.6-5.0)
== END ==
LOC: OD 10:48
PROVIDERS: ATTEND Internal Medicine
DX: I25.10 Atherosclerotic heart disease of native coronary artery without angina pectoris (principal); R06.09 Other forms of dyspnea; Z79.899 Other long term (current) drug therapy
CPT/HCPCS: 36415; 80048; 85025

== ENCOUNTER → 2020-01-21 | Outpatient (CLI) | payer BC, MEDICARE ==
[2020-01-21 08:18] LABS: ABSOLUTE BASOPHILS # (AUTO) 0.1 10^3/uL (0.0-0.2); ABSOLUTE EOSINOPHILS # (AUTO) 0.3 10^3/uL (0.0-0.6); ABSOLUTE LYMPHOCYTES (AUTO) 1.9 10^3/uL (0.5-4.7); ABSOLUTE MONOCYTES (AUTO) 0.5 10^3/uL (0.1-1.4); ABSOLUTE NEUT (AUTO) 2.5 10^3/uL (1.7-8.2); BASOPHILS % (AUTO) 2.3 % (0-2); HEMATOCRIT 39.9 % (36.0-47.0); HEMOGLOBIN 13.8 g/dL (12.0-15.5); MEAN CORPUSCULAR HEMOGLOBIN 31.8 pg (27.0-33.4); MEAN CORPUSCULAR HGB CONC 34.5 g/dL (32.0-36.0); MEAN CORPUSCULAR VOLUME 92 fl (80-97); MONOCYTES % (AUTO) 9.4 % (3-13); PLATELET COUNT 266 10^3/uL (150-450); RED BLOOD COUNT 4.33 10^6/uL (3.72-5.28); SEGMENTED NEUTROPHILS % (AUTO) 47.3 % (42-78); TOTAL CELLS COUNTED % (AUTO) 100 %; WHITE BLOOD COUNT 5.4 10^3/uL (4.0-10.5)
[2020-01-21 08:28] LABS: ALBUMIN 4.7 g/dL (3.5-5.0); ALKALINE PHOSPHATASE 77 U/L (38-126); ANION GAP 8 (5-19); ASPARTATE AMINO TRANSFERASE 32 U/L (14-36); BILIRUBIN,DIRECT 0.1 mg/dL (0.0-0.4); BILIRUBIN,TOTAL 1.1 mg/dL (0.2-1.3); BLOOD UREA NITROGEN 17 mg/dL (7-20); CALCIUM 9.7 mg/dL (8.4-10.2); CARBON DIOXIDE 27 mmol/L (22-30); CHLORIDE 107 mmol/L (98-107); CHOLESTEROL 153.34 mg/dL (0-200); GLUCOSE 112 mg/dL (75-110); POTASSIUM 4.9 mmol/L (3.6-5.0); TOTAL PROTEIN 8.3 g/dL (6.3-8.2); TRIGLYCERIDES 97 mg/dL (<150)
[2020-01-21 08:39] LABS: DIRECT LDL 78 mg/dL (<100)
== END ==
LOC: OD 07:03
PROVIDERS: ATTEND Internal Medicine
DX: I25.10 Atherosclerotic heart disease of native coronary artery without angina pectoris (principal); E78.00 Pure hypercholesterolemia, unspecified; Z79.899 Other long term (current) drug therapy
CPT/HCPCS: 36415; 80053; 80061; 85025

== ENCOUNTER → 2020-08-17 | Outpatient (CLI) | payer BC ==
[~2020-08-17] MED LIST changes: +COVID-19 VACCINE (PFIZER)/PF 30 MCG/0.3 ML VIAL IM ONE; -EPINEPHRINE INJ 1 MG/10 ML DISP.SYRIN ONE; +EPINEPHRINE INJ/PF 1 MG/1 ML AMPULE IM PRN; -FLUMAZENIL INJ 0.5 MG/5 ML VIAL ONE; -GLUCAGON,HUMAN RECOMB 1 MG INJ ONE; -GLYCOPYRROLATE INJ 0.4 MG/2 ML VIAL ONE; -NALOXONE HCL INJ/PF 0.4 MG/1 ML SDV ONE; -ONDANSETRON HCL INJ/PF 4 MG/2 ML SDV ONE
== END ==
LOC: EMPHEALTH 09:53
PROVIDERS: ATTEND Internal Medicine
DX: Z23 Encounter for immunization (principal)
CPT/HCPCS: 91300

== ENCOUNTER → 2020-09-07 | Outpatient (CLI) | payer BC ==
--- OUTSIDE RECORDS SUMMARY | 2020-09-07 14:33 | XMS REPORT ---
:1945 Author Organization Formerly [facility], [facility] [facility] [place] [address] [place] [id number] Care Team Providers Name Role Phone Chi Shafer MD Attending Clinician Unavailable Allergies, Adverse Reactions, Alerts This patient has no known allergies or adverse reactions. Medications Ordered Filled Start Stop Current Ordering Indication Dosage Frequency Signature Comments Components Medication Medication Date Date Medication? Clinician (SIG) Name Name Atorvastati 2019-08 Yes Fabian Atorvastat n Calcium 09-04 Chrystal MONROE in Calcium 40 MG Oral 09:51: 40 MG Oral Tablet 25 Tablet TAKE 1 TABLET BY MOUTH EVERY DAY AT BEDTIME FOR CHOLESTERO L Quantity: 90 Refills: 0 Fabian Jarrell MD Start : 0Active Metoprolol 2019-08 Yes Fabian Metoprolol Tartrate 25 -18 Chrystal MONROE Tartrate MG Oral 09:51: 25 MG Oral Tablet 13 Tablet TAKE 1 TABLET BY MOUTH TWICE DAILY Quantity: 180 Refills: 0 Fabian Jarrell MD Start : 0Active Aspirin Low Yes Aspirin Dose 81 MG Low Dose TABS 81 MG TABS Refills: 0 Active Problems Condition Condition Condition Status Onset Resolution Last Treatin g Comments Name Details Category Date Date Treatment Clinician Date Osteoarthri Osteoarthri Problem Active tis of knee tis of knee Non-ST Non-ST Problem Active elevation elevation myocardial myocardial infarction infarction (NSTEMI) (NSTEMI) COPD COPD Problem Active (chronic (chronic obstructive obstructive pulmonary pulmonary disease) disease) CAD CAD Problem Active (coronary (coronary artery artery disease) disease) Procedures Procedure Date / Time Performed Performing Clinician [facility] History of Coronary artery bypass 2019-03-29 00:00:00 graft Results This patient has no known results. Assessments Condition Name Status Diagnosis Date Treating Clinici an CAD (coronary artery disease) Active COPD (chronic obstructive pulmonary disease) Active Non-ST elevation myocardial infarction Active (NSTEMI) CAD (coronary artery disease) Active COPD (chronic obstructive pulmonary disease) Active Non-ST elevation myocardial infarction Active (NSTEMI) CAD (coronary artery disease) Active COPD (chronic obstructive pulmonary disease) Active Non-ST elevation myocardial infarction Active (NSTEMI) CAD (coronary artery disease) Active COPD (chronic obstructive pulmonary disease) Active Osteoarthritis of knee Active Non-ST elevation myocardial infarction Active (NSTEMI) Non-ST elevation myocardial infarction Active (NSTEMI) COPD (chronic obstructive pulmonary disease) Active CAD (coronary artery disease) Active Encounters Start End Encounter Admission Attending Care Care Encounter Date/Time Date/Time Type Type Clinicians Facility Department ID 2020-01-24 2020-01-24 Appointment SORAIDA Shafer [facility] [id number] 14:30:00 14:30:00 ; Chi Couch MD 2019-11-29 2019-11-29 Appointment ESPERANZA ShaferLORI [facility] [id number] 08:45:00 08:45:00 ; Chi Couch MD 2019-10-27 2019-10-27 Appointment [facility] [id number] 08:30:00 08:30:00 ; Bernice Bass 2019-08-23 2019-08-23 [facility] [id number] 15:00:00 15:00:00 ; Chi Couch MD 2019-07-29 2019-07-29 [facility] [id number] 15:15:00 15:15:00 ; Chi Couch MD 2019-05-28 2019-05-28 Appointment ESPERANZA ShaferLORI [facility] [id number] 10:15:00 10:15:00 ; Chi Couch MD 2019-05-11 2019-05-11 Appointment ESPERANZA ShaferLORI [facility] [id number] 15:30:00 15:30:00 ; Chi Couch MD 2019-05-06 2019-05-06 Appointment [facility] [id number] 11:30:00 11:30:00 ; Shine Santos M.D. Social History This patient has no known social history. Vital Signs This patient has no known vital signs.
== END ==
LOC: EMPHEALTH 09:47
PROVIDERS: ATTEND Internal Medicine
DX: Z23 Encounter for immunization (principal)
CPT/HCPCS: 91300